=== PATIENT | male | born 1980 | race Caucasian/White ===

== ENCOUNTER 2018-05-09 15:26 | Emergency (ER) | payer MEDICAID ==
--- NOTE | 2018-05-09 15:37 | EDPHY ---
General - History Smoking Status: Never smoked Time Seen by Provider: 05/09/18 15:36 Narrative: CLINICAL IMPRESSION: Right tibial plateau fracture ASSESSMENT/PLAN: Patient is a 38-year-old male with no significant medical history who presents with complaint of acute right knee pain after sustaining a fall skiing. Patient is nontoxic-appearing, he is uncomfortable appearing however not toxic- appearing. Physical examination reveals generalized tenderness without significant anterior posterior laxity. Patient is tender at the tibial plateau , no proximal fibular head tenderness. The x-rays reveal comminuted, mildly displaced tibial plateau fracture with large joint effusion. There was no evidence of open fracture, dislocation, compartment syndrome or neurovascular compromise. History and physical examination is most consistent with acute right tibial plateau fracture. The patient was placed in a posterior long leg splint as he would not tolerate traditional knee immobilization. I discussed this case with Dr. Spain, no additional imaging necessary at this time. He recommended pain control and follow up as an outpatient with nonweightbearing status. Return precautions discussed- patient to return to the emergency Department for significantly worsening or uncontrolled pain, significant swelling, numbness or tingling of the extremity, paleness or coolness of his digits, fever or for any other concerning symptom. The patient verbalizes understanding and he is in agreement with this plan. Case, results and plan of care all discussed with Dr. Fraser. Patient is awaiting posterior long-leg splint at this time, Dr. rFaser will resume care until patient is splinted and discharged. DIFFERENTIAL DX: Knee injury while skiing including but not limited to fracture, ACL injury, contusion, muscular strain, and meniscus injury. ED COURSE: CHIEF COMPLAINT: Right knee pain HPI: Patient is a 38-year-old male with no significant medical history who presents to the emergency department complaining of acute right knee pain after sustaining a fall while skiing. Patient reports he went off a jump, immediately experienced pain in the right knee. This happened at approximately 11:00 a.m. This morning, he has not taken anything for pain. Patient does endorse a remote tibial plateau fracture to this leg requiring surgical intervention. He denies any numbness or tingling to the extremity, denies any thigh pain or calf pain. Patient denies hitting his head, there was no loss of consciousness. He denies any neck pain, back pain, chest wall pain or abdominal pain. He denies any other injury or concern. PAST MEDICAL HISTORY: Denies Pertinent Past Surgical History: Right knee tibial plateau fracture Family History: Not contributory Social History: Smoker, denies alcohol or illicit drug use ROS: A full 10 point review of systems was negative except for those mentioned in HPI. PHYSICAL EXAM: General Appearance: Well-developed, uncomfortable appearing however not toxic- appearing. HEENT: TMs are clear bilaterally no perforation or FB, no injection, no evidence of serous or mucopurulent otitis. Oropharynx clear is no erythema or exudates, no tonsillar hypertrophy or asymmetry. Dentition without abnormality. Eyes: PERRLA, no acute vision change, nystagmus, swelling, discharge, pain or photosensitivity. Conjunctiva pink, no pallor or injection Neck: Supple, nontender, no lymphadenopathy, no midline pain, FROM, no meningismus. Respiratory: There are no retractions, lungs are clear to auscultation. Cardiac: Regular rate and rhythm, no murmurs or gallops. Gastrointestinal: Abdomen is soft, nontender, bowel sounds normal, no masses/ hernia, no rigidity, guarding or focal peritoneal findings. Skin: Warm, dry, no rashes, no nodules on palpation. Upper Extremities: Intact distal pulses, Full range of motion intact, no tenderness, no ecchymosis or edema Lower Extremities: Left lower extremity unremarkable with full range of motion nontender. Intact distal pulses, No edema, No tenderness, No cyanosis, full range of motion intact, No calf tenderness bilaterally. Right lower extremity thigh compartment is soft. Patient with generalized tenderness to palpation however he is most tender at the tibial plateau. There is no proximal fibular head tenderness. Patient does have moderate amount of edema. He has no calf tenderness, 2+ dorsalis pedis pulses distally. MEDICAL DECISION MAKING: Patient was seen independently. Secondary supervising physician at time of evaluation was Dr. Fraser. Diagnosis: Right tibial plateau fracture. New, requires workup Summary: See Assessment and Plan for summary of ED visit Clinical lab tests: Not applicable. Independent visualization of images, tracing, or specimens: Yes. Decision to obtain medical records or history from someone other than the patient: No Review / Summarize previous medical records: No Discussed patient with another provider: Yes, Dr. Fraser Patient Progress: Stable, discharge. (Sade Nicholas) Medical Decision Makin: Patient was splinted posterior long-leg splint. He is neurovascular intact after splint placement good cap refill, good sensation no discoloration no evidence of compartment syndrome. Feels better in a posterior long-leg splint he did not tolerate a knee immobilizer as straightening his leg and knee too much it was too uncomfortable and was removed. He feels much more comfortable with the posterior long leg splint. Post splint placement I did evaluate him neurovascularly intact no decreased sensation. Pain well controlled. Patient understands to follow up with Orthopedics Return precautions discussed with the patient. (Alber Fraser) - Objective Vital Signs: Initial Vital Signs Temperature (C) 36.4 C 05/09/18 15:27 Heart Rate 67 05/09/18 15:27 Respiratory Rate 24 H 05/09/18 15:27 Blood Pressure 133/78 H 05/09/18 15:27 O2 Sat (%) 99 05/09/18 15:27 O2 Delivery Mode Room Air Allergies/Adverse Reactions: No Known Allergies Allergy (Unverified 07/29/13 12:31) Home Medications: Medication Instructions Recorded oxyCODONE IR [Oxycodone Ir (*)] 5 - 10 mg PO Q4-6PRN PRN #20 tab 05/09/18 Medications Given: Discontinued Medications Oxycodone/Acetaminophen (Percocet 5/325) 2 tab PO EDNOW ONE Stop: 05/09/18 15:41 Last Admin: 05/09/18 15:46 Dose: 2 tab Oxycodone/Acetaminophen (Percocet 5/325mg Prepack#4) 1 btl TAKEHOME EDNOW ONE Stop: 05/09/18 17:24 Last Admin: 05/09/18 18:12 Dose: 1 btl Oxycodone/Acetaminophen (Percocet 5/325) 2 tab PO EDNOW ONE Stop: 05/09/18 18:22 Last Admin: 05/09/18 18:22 Dose: 2 tab Departure - Departure Disposition: Home, Routine, Self-Care Clinical Impression: Tibial plateau fracture, right, Knee effusion, right Condition: Good Instructions: Leg Fracture (ED) Additional Instructions: DISCHARGE INSTRUCTIONS FROM YOUR DOCTOR Thank you for visiting our emergency department today. Please keep in mind that discharge from the emergency department does not mean that there is nothing wrong - it simply means that we have not identified an emergency condition that requires further evaluation or treatment in the hospital. You should always plan to follow up with primary care for re-evaluation of your condition in the next 2-3 days. Please follow-up with Orthopedic surgery, I have given you a referral to Dr. Spain. Please call tomorrow to schedule this appointment. He is aware that you were seen and evaluated in the emergency department. Rest, ice (on and off), elevate the right lower extremity above the level of the heart to decrease pain and swelling. Wear the splint as applied, Hudson compression for swelling. For pain, Take oxycodone as prescribed if needed for pain. Do not take this medication while you are drinking alcohol, driving, working, supervising persons or operating machinery. This medication can make you sleepy. You may need to take a stool softener, such as Colace, which is available [id number], while you take this narcotic pain medicine, as it may make you constipated. You may also take Tylenol, I recommend 500-1000 mg every 6-8 hours. Do not exceed 4000 mg in a 24 hr period. Continue your regular medications as prescribed. Return for increased pain or swelling, numbness, tingling or weakness, discoloration of the toes, fever, inability to move your toes or any other new, worsening or worrisome symptoms. People present with illnesses and injuries in different ways, and it is always possible that we have missed something. You may always return for re-evaluation if symptoms worsen or if they are not improving or if you develop new/different symptoms. Again, thank you for choosing our emergency department. We hope that you feel better. Referrals: José Miguel Spain MD [Medical Doctor] - 2-3 days, call for appt. (Call tomorrow to schedule an appointment for follow-up) Prescriptions: oxyCODONE IR [Oxycodone Ir (*)] 5 - 10 mg PO Q4-6PRN PRN #20 tab PRN Reason: Pain, Severe
[2018-05-09] MEDS ORDERED: OXYCODONE/APAP 5/325 TAB PO ONE ×2 (15:40→18:21)
[2018-05-09] MEDS ORDERED: OXYCODONE/APAP 5/325MG PREPACK#4 BTL TAKEHOME ONE (17:23)
[2018-05-09] MEDS ORDERED: OXYCODONE/APAP 5/325 TAB ONE ×2 (18:20)
[2018-05-09 18:45] VITALS: BP 145/85
== END 2018-05-09 18:44 | disposition home or self-care (01) ==
PROC: 2W3LX1Z Immobilization of Right Lower Extremity using Splint (ICD-10-PCS; principal; 2018-05-09)
DX: S82.191A Other fracture of upper end of right tibia, initial encounter for closed fracture (principal); V00.321A Fall from snow-skis, initial encounter; Y93.23 Activity, snow (alpine) (downhill) skiing, snowboarding, sledding, tobogganing and snow tubing; Y92.828 Other wilderness area as the place of occurrence of the external cause; Y99.8 Other external cause status